=== PATIENT | female | born 1985 | race Two or more races ===

== ENCOUNTER → 2023-08-04 | Outpatient (CLI) | payer BC, SELFPAY ==
[2023-08-04 16:00] LABS: BASO # 0.1 10^3/uL (0.0-0.2); BASO % 0.6 % (0.0-1.0); EOS # 0.3 10^3/uL (0.0-0.5); EOS % 3.4 % (0.0-3.0); HEMATOCRIT 41.3 % (36.0-47.0); HEMOGLOBIN 13.5 g/dl (12.0-15.5); LYMPH # 2.3 10^3/uL (1.5-5.0); LYMPH % 28.9 % (24.0-44.0); MEAN CORPUSCULAR HEMOGLOBIN 31.1 pg (27.0-33.0); MEAN CORPUSCULAR HGB CONC 32.7 g/dl (32.0-36.5); MEAN CORPUSCULAR VOLUME 95.2 fl (80.0-96.0); MONO # 0.5 10^3/uL (0.0-0.8); MONO % 6.1 % (2.0-8.0); NEUTROPHILS # 4.8 10^3/uL (1.5-8.5); NEUTROPHILS % 60.7 % (36.0-66.0); PLATELET COUNT, AUTOMATED 322 10^3/uL (150-450); RED BLOOD COUNT 4.34 10^6/uL (4.00-5.40)
[2023-08-04 16:08] LABS: FREE T4 0.95 NG/DL (0.89-1.76); THYROID STIMULATING HORMONE 1.452 uIU/ML (0.55-4.78)
[2023-08-04 16:09] LABS: FOLLICLE STIMULATING HORMONE 10.8 mIU/ML
[2023-08-04 16:10] LABS: LUTEINIZING HORMONE 5.4 mIU/ML
[2023-08-04 16:11] LABS: ESTRADIOL 43.9 PG/ML; PROLACTIN 5.12 NG/ML
[2023-08-04 16:12] LABS: PROGESTERONE 0.54 NG/ML
[2023-08-06 14:10] LABS: TESTOSTERONE FREE (DIRECT) 1.8 pg/mL (0.0-4.2); VITAMIN D 1,25 DIHYDROXY 55.8 pg/mL (24.8-81.5)
== END ==
LOC: M PLALAB 10:22
PROVIDERS: ATTEND Nurse Practitioner Family
DX: R53.83 Other fatigue (principal); Z11.51 Encounter for screening for human papillomavirus (HPV); R87.612 Low grade squamous intraepithelial lesion on cytologic smear of cervix (LGSIL); N95.9 Unspecified menopausal and perimenopausal disorder; R87.810 Cervical high risk human papillomavirus (HPV) DNA test positive
CPT/HCPCS: 36415; 82652; 82670; 83001; 83002; 84144; 84146; 84402; 84403; 84439; 84443; 85025; 87624; G0123

== ENCOUNTER → 2023-09-04 | Outpatient (REF) | payer BC | LOC: M PLALAB 13:50 | PROVIDERS: ATTEND Advanced Practice Midwife | DX: R87.610 Atypical squamous cells of undetermined significance on cytologic smear of cervix (ASC-US) (principal); R87.810 Cervical high risk human papillomavirus (HPV) DNA test positive ==